=== PATIENT | female | born 2000 | race Caucasian/White ===

== ENCOUNTER 2024-04-14 03:48 | Emergency (ER) | payer MEDICAID ==
[~2024-04-14] VITALS: Ht 160 cm; Wt 92.0 kg
[2024-04-14 03:51] VITALS: BP 138/76; PULSE 80; RESP 16; TEMP 36.9; O2SAT 100
[2024-04-14] MEDS: METOCLOPRAMIDE HCL 10MG TABLET PO ONE (04:30)
[2024-04-14] MEDS: KETOROLAC 15MG/ML VIAL IM ONE (04:30)
[2024-04-14] MEDS ORDERED: NAPR-1176 MT (05:28)
== END 2024-04-14 06:24 | disposition home or self-care (01) ==
LOC: ER 03:48
DX: R51.9 Headache, unspecified (principal); Z79.1 Long term (current) use of non-steroidal anti-inflammatories (NSAID)
CPT/HCPCS: 99283; 96372; J1885; J8597